=== PATIENT | female | born 1945 | race Caucasian/White ===

== ENCOUNTER 2016-12-21 09:00 | Outpatient (CLI) | payer MEDICARE, BC ==
[2016-12-21] VITALS (14 sets, daily range): BP systolic 111–137; BP diastolic 56–94
[~2016-12-21] VITALS: Ht 162.6 cm; Wt 121.1 kg
[2016-12-21 09:34] LABS: HEMOGLOBIN 13.5 g/dL (12.2-16.2); LYMPH % 14.3 % (10-50.0)
== END 2016-12-21 14:15 | disposition home or self-care (01) ==
LOC: COP 09:00
PROVIDERS: Dermatology; Internal Medicine
DX: C85.86 Other specified types of non-Hodgkin lymphoma, intrapelvic lymph nodes (principal); L40.0 Psoriasis vulgaris; Z79.899 Other long term (current) drug therapy; Z51.11 Encounter for antineoplastic chemotherapy

== ENCOUNTER 2017-03-01 09:15 | Outpatient (CLI) | payer MEDICARE, BC ==
[~2017-03-01] VITALS: Ht 162.6 cm; Wt 122.5 kg
[2017-03-01] VITALS (15 sets, daily range): BP systolic 118–154; BP diastolic 47–83
[~2017-03-01 09:15] MED LIST: ASPIRIN 325MG325 MG PO; CELEXA40 M1 PO; LASIX20 MG PO; LIPITOR40 MG PO; LISINOPRIL 10MG10 MG PO; OTEZLA30 MG PO; PANTOPRAZOLE SO40 MG PO; POTASSIUM CHLO20 ME2 PO; VITAMIN D50000 I1 PO
[2017-03-01 09:58] LABS: HEMOGLOBIN 13.1 g/dL (12.2-16.2); LYMPH # 0.9 K/mm3 (0.7-4.5); LYMPH % 12.5 % (10-50.0)
== END 2017-03-01 14:40 | disposition home or self-care (01) ==
LOC: COP 09:15
PROVIDERS: Internal Medicine
DX: C85.86 Other specified types of non-Hodgkin lymphoma, intrapelvic lymph nodes (principal); Z51.11 Encounter for antineoplastic chemotherapy
CPT/HCPCS: J1642; J9310